=== PATIENT | female | born 1970 | race Hispanic/Latino ===

== ENCOUNTER 2017-02-24 12:43 | Emergency (ER) | payer BC ==
[2017-02-24 12:46] VITALS: BMI 25.4
[2017-02-24 12:57] VITALS: TEMP 98.4
[2017-02-24] MEDS ORDERED: TDAP Vaccine 0.5 mL Syr IM ONE (12:58)
--- NOTE | 2017-02-24 12:58 | ED PDOC ---
Arrival/HPI - General Historian: Patient - General Chief Complaint: Trauma Time Seen by Provider: 02/24/17 12:45 - History of Present Illness Narrative History of Present Illness (Text): 02/24/17 12:50 46 y/o female, pmh including multiple sclerosis, nkda, last tetanus doesn't remember, c/o lt. lower beaulieu injury with skin tear x 1 day. Pt. stated that she has chronically difficulty walking with the cane due to the multiple sclerosis, walking up the stair last night, lost her balance which she had these episodes chronically and following up with the neurologist Dr. Tucker, hit the lt. lateral beaulieu against the metal staple which sustained the skin tear , no numbness or tingling, no head or neck injury, no night sweat, no dizziness , no chest pain or shortness of breath, no other medical or psychological complaints. (Avel Lemus) Past Medical History - Provider Review Nursing Documentation Reviewed: Yes - Infectious Disease Hx of Infectious Diseases: None - Tetanus Immunization Tetanus Immunization: Unknown - Cardiac Hx Cardiac Disorders: No - Pulmonary Hx Respiratory Disorders: No - Neurological Hx Neurological Disorder: Yes Hx Multiple Sclerosis: Yes (ambulates w/cane) - HEENT Hx HEENT Disorder: No - Renal Hx Renal Disorder: No - Endocrine/Metabolic Hx Endocrine Disorders: No - Hematological/Oncological Hx Blood Disorders: No - Integumentary Hx Dermatological Disorder: No - Musculoskeletal/Rheumatological Hx Musculoskeletal Disorders: Yes Hx Unsteady Gait: Yes - Gastrointestinal Hx Gastrointestinal Disorders: No - Genitourinary/Gynecological Hx Genitourinary Disorders: No - Psychiatric Hx Psychophysiologic Disorder: No Hx Substance Use: No - Surgical History Hx Tonsillectomy: Yes Other/Comment: EAR TUBES - Anesthesia Hx Anesthesia: Yes Hx Anesthesia Reactions: No - Suicidal Assessment Feels Threatened In Home Enviroment: No Family/Social History - Physician Review Nursing Documentation Reviewed: Yes Family/Social History: Unknown Family HX Smoking Status: Never Smoked Hx Alcohol Use: No Hx Substance Use: No Hx Substance Use Treatment: No Allergies/Home Meds Allergies/Adverse Reactions: Allergies No Known Allergies Allergy (Verified 02/24/17 12:46) Home Medications: Home Meds Medication Instructions Recorded Confirmed Natalizumab [Tysabri] 1 mg IV Q30D 08/31/13 02/24/17 Dalfampridine [Ampyra] 10 mg PO Q12 08/01/15 02/24/17 Review of Systems - Review of Systems Constitutional: absent: Fatigue, Fevers Eyes: absent: Vision Changes ENT: absent: Hearing Changes Respiratory: absent: SOB, Cough Cardiovascular: absent: Chest Pain Gastrointestinal: absent: Abdominal Pain, Diarrhea, Nausea, Vomiting Musculoskeletal: absent: Arthralgias, Back Pain, Neck Pain, Joint Swelling, Myalgias Skin: Other (+abrasion). absent: Rash, Pruritis, Skin Lesions, Laceration, Abscess, Ulcer, Cellulitis Neurological: absent: Headache, Dizziness, Focal Weakness, Gait Changes Psychiatric: absent: Anxiety, Depression, Suicidal Ideation Physical Exam Temperature: Afebrile Blood Pressure: Normal Pulse: Regular Respiratory Rate: Normal Appearance: Positive for: Well-Appearing, Non-Toxic, Comfortable Pain Distress: None Mental Status: Positive for: Alert and Oriented X 3 - Systems Exam Head: Present: Atraumatic, Normocephalic Pupils: Present: PERRL Extroacular Muscles: Present: EOMI Conjunctiva: Present: Normal Mouth: Present: Moist Mucous Membranes Neck: Present: Normal Range of Motion Respiratory/Chest: Present: Clear to Auscultation, Good Air Exchange. No: Respiratory Distress, Accessory Muscle Use Cardiovascular: Present: Regular Rate and Rhythm, Normal S1, S2. No: Murmurs Abdomen: Present: Normal Bowel Sounds. No: Tenderness, Distention, Peritoneal Signs Back: Present: Normal Inspection Upper Extremity: Present: Normal Inspection. No: Cyanosis, Edema Lower Extremity: Present: Normal Inspection, Neurovascularly Intact, Capillary Refill < 2 s, Other (Lt. tibia/fibula: visible approx. 3cm superficial abrasion noted on the proximal 1/3 lateral tibial region with no laceration gap, FROM without limitation, sensation intact, motor 5/5, +DPPT pulses, capillary refill < 2 seconds, neurovascular intact. ). No: Edema Neurological: Present: GCS=15, Speech Normal, Motor Func Grossly Intact, Gait Normal, Memory Normal Skin: Present: Warm, Dry, Normal Color. No: Rashes Psychiatric: Present: Alert, Oriented x 3, Normal Insight, Normal Concentration Vital Signs Temp Pulse Resp BP Pulse Ox 02/24/17 12:49 98.4 F 79 19 112/76 98 Medical Decision Making - RAD Interpretation Pca: Radiologist ED Course and Treatment: 02/24/17 14:10 I was available for consultation during PA evaluation. The chart was reviewed by me, and I agree with disposition. The documented history was done by the physician industrial arts teacher. The documented physical exam was done by the physician industrial arts teacher. The documented procedures were done by the physician industrial arts teacher. (Osmani Alejandra) 02/24/17 13:04 -UA/Urine hcg -xray -tetanus/keflex -wound irrigate with normal saline, clean with betadine, bacitracin and gauze dressing, keflex. -Discharge home with keflex, bacitracin, tylenol, clean with soap and water twice daily, follow up with your own pmd and neurologist within 2 days, return to the ER for any new or worsening signs or symptoms. 02/24/17 13:49 -x-ray show no fracture or dislocation -UA show +UTI -Discharge home with keflex, bacitracin, tylenol, clean with soap and water twice daily, follow up with your own pmd and neurologist within 2 days, return to the ER for any new or worsening signs or symptoms (Avel Lemus) - Lab Interpretations Lab Results: Lab Results 02/24/17 13:52: Urine Color Yellow, Urine Appearance Clear, Urine pH 6.0, Ur Specific Cyrus 1.010, Urine Protein Negative, Urine Glucose (UA) Negative, Urine Ketones Negative, Urine Blood Small H, Urine Nitrate Negative, Urine Bilirubin Negative, Urine Urobilinogen 0.2, Ur Leukocyte Esterase Small H, Urine RBC Pending, Urine WBC Pending - RAD Interpretation Radiology Orders: 02/24/17 12:58 TIBIA FIBULA LEFT [RAD] Stat no fracture/dislocation/joint effusion (Avel Lemus) - Medication Orders Current Medication Orders: Discontinued Medications Cephalexin Monohydrate (Keflex) 500 mg PO STAT STA PRN Reason: Protocol Stop: 02/24/17 12:59 Tetanus/Reduced Diphtheria/Acell Pertussis (Boostrix Vaccine Inj) 0.5 ml IM .ONCE ONE Stop: 02/24/17 12:59 - PA / BLADDER CHANGER / Resident Statement / has reviewed & agrees with the documentation as recorded. Disposition/Present on Arrival - Present on Arrival Any Indicators Present on Arrival: No History of DVT/PE: No History of Uncontrolled Diabetes: No Urinary Catheter: No History of Decub. Ulcer: No History Surgical Site Infection Following: None - Disposition Have Diagnosis and Disposition been Completed?: Yes Disposition Time: 13:06 Patient Plan: Discharge - Disposition Diagnosis: Leg abrasion, Leg injury, UTI (urinary tract infection) Disposition: HOME/ ROUTINE Patient Problems: Current Active Problems Problem Status Onset Leg abrasion Acute Leg injury Acute Condition: GOOD Additional Instructions: Discharge home with keflex, bacitracin, tylenol, clean with soap and water twice daily, follow up with your own pmd and neurologist within 2 days, return to the ER for any new or worsening signs or symptoms Prescriptions: Acetaminophen [Tylenol 325mg tab] 2 tab PO QID PRN #30 tab PRN Reason: Other Bacitracin Ointment [Bacitracin] 1 appful TOP BID #15 g Cephalexin [cephalexin] 500 mg PO QID #28 cap Referrals: [facility] [place] [Outside] - Follow up with primary Forms: WORK NOTE
--- NOTE | 2017-02-24 13:51 | RAD ---
PROCEDURE: Radiographs of the left tibia and fibula. HISTORY: lt. tibia/fibula lateral proximal injury COMPARISON: None available. TECHNIQUE: Frontal and lateral views obtained. FINDINGS: BONES: No acute displaced fracture. JOINT SPACES: No dislocation. OTHER FINDINGS: Soft tissues appear unremarkable. No evidence of radiopaque foreign body. IMPRESSION: No acute displaced fracture, dislocation, or significant joint effusion identified. If symptoms persist, or if there is continued clinical concern, x-ray follow-up in 7-10 days should be considered.
[2017-02-24 14:09] LABS: URINE BILIRUBIN NEGATIVE (NEGATIVE); URINE BLOOD SMALL (NEGATIVE); URINE GLUCOSE (UA) NEGATIVE (NEGATIVE); URINE KETONE NEGATIVE (NEGATIVE); URINE LEUKOCYTE ESTERASE SMALL Leu/uL (NEGATIVE); URINE PROTEIN NEGATIVE mg/dL (<30 mg/dL); URINE UROBILINOGEN 0.2 E.U./dL (<1 E.U./dL)
[2017-02-24 14:12] LABS: URINE APPEARANCE CLEAR (CLEAR); URINE COLOR YELLOW (YELLOW)
[2017-02-24 14:24] LABS: URINE BACTERIA SMALL (NEG)
[2017-02-24 14:40] VITALS: BP 116/77; PULSE 62; RESP 17; O2SAT 100
== END 2017-02-24 14:41 | disposition home or self-care (01) ==
LOC: ED 12:43
DX: S80.812A Abrasion, left lower leg, initial encounter (principal); W22.8XXA Striking against or struck by other objects, initial encounter; Y93.89 Activity, other specified; Y92.89 Other specified places as the place of occurrence of the external cause; N39.0 Urinary tract infection, site not specified; G35 Multiple sclerosis; Z23 Encounter for immunization

== ENCOUNTER 2017-05-05 21:05 | Emergency (ER) | payer BC ==
[2017-05-05 21:06] VITALS: BMI 25.4
[2017-05-05 21:15] VITALS: TEMP 98.4
--- NOTE | 2017-05-05 21:21 | ED PDOC ---
Arrival/HPI <Kishan Juarez - Last Filed: 05/05/17 21:49> - General Historian: Patient <Avel Lemus - Last Filed: 05/09/17 11:44> <Levy Queen - Last Filed: 05/09/17 20:38> - General Chief Complaint: Female Genitourinary Time Seen by Provider: 05/05/17 21:09 - History of Present Illness Narrative History of Present Illness (Text): 05/05/17 21:21 47 y/o female, pmh including UTI, nkda, c/o burning urinary sensation x 3 days. Pt. has no fever or chills, no flank or pelvic pain, no rash, no night sweat, no dizziness, no change in vision, no pelvic pain, no rash, no other medical or psychological complaints. (Avel Lemus) Past Medical History - Provider Review Nursing Documentation Reviewed: Yes - Infectious Disease Hx of Infectious Diseases: None - Tetanus Immunization Tetanus Immunization: Unknown - Cardiac Hx Cardiac Disorders: No - Pulmonary Hx Respiratory Disorders: No - Neurological Hx Neurological Disorder: Yes Hx Multiple Sclerosis: Yes (ambulates w/cane) - HEENT Hx HEENT Disorder: No - Renal Hx Renal Disorder: No - Endocrine/Metabolic Hx Endocrine Disorders: No - Hematological/Oncological Hx Blood Disorders: No - Integumentary Hx Dermatological Disorder: No - Musculoskeletal/Rheumatological Hx Musculoskeletal Disorders: Yes Hx Unsteady Gait: Yes - Gastrointestinal Hx Gastrointestinal Disorders: No - Genitourinary/Gynecological Hx Genitourinary Disorders: No - Psychiatric Hx Psychophysiologic Disorder: No Hx Substance Use: No - Surgical History Hx Tonsillectomy: Yes Other/Comment: EAR TUBES - Anesthesia Hx Anesthesia: Yes Hx Anesthesia Reactions: No Hx Malignant Hyperthermia: No - Suicidal Assessment Feels Threatened In Home Enviroment: No <Avel Lemus - Last Filed: 05/09/17 11:44> Family/Social History - Physician Review Nursing Documentation Reviewed: Yes Family/Social History: Unknown Family HX Smoking Status: Never Smoked Hx Alcohol Use: No Hx Substance Use: No Hx Substance Use Treatment: No <Avel Lemus - Last Filed: 05/09/17 11:44> Allergies/Home Meds <Kishan Juarez - Last Filed: 05/05/17 21:49> <Avel Lemus - Last Filed: 05/09/17 11:44> <ShantalMicah rosaslaura Horta - Last Filed: 05/09/17 20:38> Allergies/Adverse Reactions: Allergies No Known Allergies Allergy (Verified 05/05/17 21:15) Home Medications: Home Meds Medication Instructions Recorded Confirmed Natalizumab [Tysabri] 1 mg IV Q30D 08/31/13 05/05/17 Dalfampridine [Ampyra] 10 mg PO Q12 08/01/15 05/05/17 Review of Systems - Review of Systems Constitutional: absent: Fatigue, Fevers Eyes: absent: Vision Changes ENT: absent: Hearing Changes Respiratory: absent: SOB, Cough Cardiovascular: absent: Chest Pain Gastrointestinal: absent: Abdominal Pain, Nausea, Vomiting Genitourinary Female: Dysuria. absent: Frequency, Hematuria, Urine Output Changes Skin: absent: Rash, Pruritis Neurological: absent: Headache, Dizziness, Focal Weakness <Avel Lemus - Last Filed: 05/09/17 11:44> Physical Exam Vital Signs Reviewed: Yes Temperature: Afebrile Blood Pressure: Normal Pulse: Regular Respiratory Rate: Normal Appearance: Positive for: Well-Appearing, Non-Toxic, Comfortable Pain Distress: None Mental Status: Positive for: Alert and Oriented X 3 - Systems Exam Head: Present: Atraumatic, Normocephalic Pupils: Present: PERRL Extroacular Muscles: Present: EOMI Conjunctiva: Present: Normal Mouth: Present: Moist Mucous Membranes Neck: Present: Normal Range of Motion Respiratory/Chest: Present: Clear to Auscultation, Good Air Exchange. No: Respiratory Distress, Accessory Muscle Use Cardiovascular: Present: Regular Rate and Rhythm, Normal S1, S2. No: Murmurs Abdomen: Present: Normal Bowel Sounds. No: Tenderness, Distention, Peritoneal Signs Back: Present: Normal Inspection. No: CVA Tenderness Upper Extremity: Present: Normal Inspection. No: Cyanosis, Edema Lower Extremity: Present: Normal Inspection. No: Edema Neurological: Present: GCS=15, Speech Normal, Motor Func Grossly Intact, Memory Normal Skin: Present: Warm, Dry, Normal Color. No: Rashes Psychiatric: Present: Alert, Oriented x 3, Normal Insight, Normal Concentration <Avel Lemus - Last Filed: 05/09/17 11:44> Medical Decision Making <Kishan Juarez - Last Filed: 05/05/17 21:49> - Lab Interpretations Interpretation: Abnormal lab values (+UTI) <Avel Lemus - Last Filed: 05/09/17 11:44> <Levy Queen - Last Filed: 05/09/17 20:38> ED Course and Treatment: 05/05/17 21:21 -ua 05/05/17 23:05 -Macrobid ordered as there is UTI -Discharge home with macrobid, pyridium, stay hydrated, bed rest, follow up with your own pmd within 2 days, return to the ER for any new or worsening signs or symptoms. (Avel Lemus) - Lab Interpretations Microbiology Results: Microbiology Results 05/05/17 23:30 Urine,Clean Catch Urine Culture - Final Escherichia Coli Enterococcus Faecalis Lab Results: Lab Results 05/05/17 22:25: Urine Color Yellow, Urine Appearance Cloudy, Urine pH 6.5, Ur Specific Carman 1.025, Urine Protein 100 H, Urine Glucose (UA) Negative, Urine Ketones Negative, Urine Blood Large H, Urine Nitrate Positive H, Urine Bilirubin Negative, Urine Urobilinogen 0.2, Ur Leukocyte Esterase Moderate H, Urine RBC Tntc, Urine WBC 25 - 30, Ur Epithelial Cells 3 - 4, Urine Bacteria Large - Medication Orders Current Medication Orders: Discontinued Medications Nitrofurantoin Macrocrystals (Macrobid) 100 mg PO STAT STA Stop: 05/05/17 23:06 Last Admin: 05/05/17 23:35 Dose: 100 mg Phenazopyridine HCl (Pyridium) 200 mg PO STAT STA Stop: 05/05/17 23:11 Last Admin: 05/05/17 23:35 Dose: 200 mg - PA / TIE MILL OPERATOR / Resident Statement JOE has reviewed & agrees with the documentation as recorded. JOE has examined the patient and agrees with the treatment plan. <Kishan Juarez - Last Filed: 05/05/17 21:49> - PA / TIE MILL OPERATOR / Resident Statement JOE has reviewed & agrees with the documentation as recorded. <Avel Lemus - Last Filed: 05/09/17 11:44> Disposition/Present on Arrival <Kishan Juarez - Last Filed: 05/05/17 21:49> - Present on Arrival Any Indicators Present on Arrival: No History of DVT/PE: No History of Uncontrolled Diabetes: No Urinary Catheter: No History of Decub. Ulcer: No History Surgical Site Infection Following: None - Disposition Have Diagnosis and Disposition been Completed?: Yes Disposition Time: 23:06 Patient Plan: Discharge <Avel Lemus - Last Filed: 05/09/17 11:44> <Levy Queen - Last Filed: 05/09/17 20:38> - Disposition Diagnosis: UTI (urinary tract infection) Disposition: HOME/ ROUTINE Condition: GOOD Additional Instructions: -Discharge home with macrobid, pyridium, stay hydrated, bed rest, follow up with your own pmd within 2 days, return to the ER for any new or worsening signs or symptoms. Prescriptions: Nitrofurantoin Macrocrystals [Macrobid] 100 mg PO BID #14 cap Phenazopyridine [Phenazopyridine HCl] 200 mg PO TID #6 tab Referrals: Jose Dominguez MD [Primary Care Provider] - Follow up with primary Forms: [employer] (Citizen [place]), WORK NOTE
[2017-05-05 22:54] LABS: PH,URINE 6.5 (4.7-8.0); URINE BILIRUBIN NEGATIVE (NEGATIVE); URINE BLOOD LARGE (NEGATIVE); URINE GLUCOSE (UA) NEGATIVE (NEGATIVE); URINE KETONE NEGATIVE (NEGATIVE); URINE LEUKOCYTE ESTERASE MODERATE Leu/uL (NEGATIVE); URINE PROTEIN 100 mg/dL (<30 mg/dL); URINE UROBILINOGEN 0.2 E.U./dL (<1 E.U./dL)
[2017-05-05 22:56] LABS: URINE APPEARANCE CLOUDY (CLEAR); URINE COLOR YELLOW (YELLOW)
[2017-05-05 23:09] LABS: URINE BACTERIA LARGE (NEG); URINE RBC TNTC /hpf (0-2); URINE WBC 25 - 30 /hpf (0-6)
[2017-05-05 23:47] VITALS: BP 120/87; PULSE 72; RESP 16; O2SAT 100
== END 2017-05-05 23:35 | disposition home or self-care (01) ==
LOC: ED 21:05
DX: N39.0 Urinary tract infection, site not specified (principal)

== ENCOUNTER 2017-12-28 13:11 | Emergency (ER) | payer BC ==
[2017-12-28 13:22] VITALS: BMI 25.7
[2017-12-28 13:26] VITALS: RESP 18
--- NOTE | 2017-12-28 13:37 | ED PDOC ---
Arrival/HPI - General Chief Complaint: Lower Extremity Problem/Injury Time Seen by Provider: 12/28/17 13:27 Historian: Patient - History of Present Illness Narrative History of Present Illness (Text): 12/28/17 13:30 47 y/o female, pmh including multiple sclerosis, nkda, c/o lt. hand thumb and rt. knee s/p accidental fall. Pt. stated that she has multiple sclerosis for over 10 years, always has mobility problem, falls frequently and managed by her own pcp Dr. Dominguez and Dr. Tucker (neurologist), accidentally fall on the lt. hand thumb and rt. anterior knee region last night while trying to get off from the bed with no head or neck injury. Pt. stated that it was an accidental fall, no chest pain or dizziness prior to the fall. Past Medical History - Provider Review Nursing Documentation Reviewed: Yes - Infectious Disease Hx of Infectious Diseases: None - Tetanus Immunization Tetanus Immunization: Unknown - Cardiac Hx Cardiac Disorders: No - Pulmonary Hx Respiratory Disorders: No - Neurological Hx Neurological Disorder: Yes Hx Multiple Sclerosis: Yes (ambulates w/cane) - HEENT Hx HEENT Disorder: No - Renal Hx Renal Disorder: No - Endocrine/Metabolic Hx Endocrine Disorders: No - Hematological/Oncological Hx Blood Disorders: No - Integumentary Hx Dermatological Disorder: No - Musculoskeletal/Rheumatological Hx Musculoskeletal Disorders: Yes Hx Unsteady Gait: Yes - Gastrointestinal Hx Gastrointestinal Disorders: No - Genitourinary/Gynecological Hx Genitourinary Disorders: No - Psychiatric Hx Psychophysiologic Disorder: No Hx Substance Use: No - Surgical History Hx Tonsillectomy: Yes Other/Comment: EAR TUBES - Anesthesia Hx Anesthesia: Yes Hx Anesthesia Reactions: No Hx Malignant Hyperthermia: No - Suicidal Assessment Feels Threatened In Home Enviroment: No Family/Social History - Physician Review Nursing Documentation Reviewed: Yes Family/Social History: Unknown Family HX Smoking Status: Never Smoked Hx Alcohol Use: No Hx Substance Use: No Hx Substance Use Treatment: No Allergies/Home Meds Allergies/Adverse Reactions: Allergies No Known Allergies Allergy (Verified 05/05/17 21:15) Home Medications: Home Meds Medication Instructions Recorded Confirmed Natalizumab [Tysabri] 1 mg IV Q30D 08/31/13 05/05/17 Dalfampridine [Ampyra] 10 mg PO Q12 08/01/15 05/05/17 Review of Systems - Review of Systems Constitutional: absent: Fatigue, Fevers Eyes: absent: Vision Changes ENT: absent: Hearing Changes Respiratory: absent: SOB, Cough Cardiovascular: absent: Chest Pain Gastrointestinal: absent: Abdominal Pain, Nausea, Vomiting Musculoskeletal: Arthralgias. absent: Back Pain, Neck Pain, Joint Swelling Skin: absent: Rash, Pruritis, Skin Lesions Neurological: absent: Headache, Dizziness Psychiatric: absent: Anxiety, Depression Physical Exam Vital Signs Reviewed: Yes Vital Signs Temp Pulse Resp BP Pulse Ox 12/28/17 16:08 98.4 F 70 18 122/70 99 12/28/17 13:12 98.5 F 74 18 111/73 100 Temperature: Afebrile Blood Pressure: Normal Pulse: Regular Respiratory Rate: Normal Appearance: Positive for: Well-Appearing, Non-Toxic, Comfortable Pain Distress: Mild Mental Status: Positive for: Alert and Oriented X 3 - Systems Exam Head: Present: Atraumatic, Normocephalic Pupils: Present: PERRL Extroacular Muscles: Present: EOMI Conjunctiva: Present: Normal Neck: Present: Normal Range of Motion Respiratory/Chest: Present: Clear to Auscultation, Good Air Exchange. No: Respiratory Distress, Accessory Muscle Use Cardiovascular: Present: Regular Rate and Rhythm, Normal S1, S2. No: Murmurs Abdomen: No: Tenderness, Distention, Peritoneal Signs Back: Present: Normal Inspection Upper Extremity: Present: Normal Inspection, Other (Lt. hand/wrist: +ttp on the lt. thenar region with no swelling, no scaphoid or wrist bone tenderness, FROM without limitation, sensation intact, motor 5/5, +radial pulse, capillary refill < 2 seconds, neurovascular intact. ). No: Cyanosis, Edema Lower Extremity: Present: Normal Inspection, Other (Rt. knee: mild +ttp on the anterior patellar region, no swelling, negative charles and oliveros signs, FROM without limitation, sensation intact, motor 5/5, +DPPT pulses, capillary refill < 2 seconds, neurovascular intact ). No: Edema Neurological: Present: GCS=15, Speech Normal, Motor Func Grossly Intact, Gait Normal, Memory Normal Skin: Present: Warm, Dry, Normal Color. No: Rashes Psychiatric: Present: Alert, Oriented x 3, Normal Insight, Normal Concentration Medical Decision Making ED Course and Treatment: 12/28/17 13:39 -Pt. refused pain meds -Xrays -Observe and reassess 12/28/17 15:57 -Urine hcg is negative -Rt. knee xray show no fracture or dislocation -Lt. hand xray show no fracture or dislocation -Oscar wrap applied with neurovascular intact. -Discharge home with naproxen, oscar wrap, ice compression, follow up with your own pmd and orthopedic within 2 days, return to the ER for any new or worsening signs or symptoms. - RAD Interpretation Radiology Orders: 12/28/17 13:37 HAND LEFT 3 VIEWS ROUTINE [RAD] Stat KNEE RIGHT 2 VIEWS (AP & LAT) [RAD] Stat Left hand: normal Rt. knee xray: no displaced fracture/dislocation Veteran Appeals Reviewer: Radiologist - PA / PULLMAN CLERK / Resident Statement / has reviewed & agrees with the documentation as recorded. Disposition/Present on Arrival - Present on Arrival Any Indicators Present on Arrival: No History of DVT/PE: No History of Uncontrolled Diabetes: No Urinary Catheter: No History of Decub. Ulcer: No History Surgical Site Infection Following: None - Disposition Have Diagnosis and Disposition been Completed?: Yes Diagnosis: Accidental fall, Arthralgia Disposition: HOME/ ROUTINE Disposition Time: 13:40 Patient Plan: Discharge Condition: GOOD Additional Instructions: -Discharge home with naproxen, oscar wrap, ice compression, follow up with your own pmd and orthopedic within 2 days, return to the ER for any new or worsening signs or symptoms. Prescriptions: Naproxen 500 mg PO BID PRN #20 tablet PRN Reason: Other Referrals: Jose Dominguez MD [Family Provider] - Follow up with primary Real Olmos III, MD [Medical Doctor] - Follow up with primary Chi Tucker MD [Staff Provider] - Follow up with primary Forms: WORK NOTE
[2017-12-28 16:09] VITALS: BP 122/70; PULSE 70; TEMP 98.4; O2SAT 99
--- NOTE | 2017-12-29 09:14 | RAD ---
PROCEDURE: Left hand dated 12/28/2017 HISTORY: Accidental fall COMPARISON: None. FINDINGS: BONES: Normal. No fracture. JOINTS: Normal. No osteoarthritic changes. SOFT TISSUES: No evidence of significant soft tissue swelling. No radiopaque foreign bodies are identified OTHER FINDINGS: None. IMPRESSION: Normal left hand radiographs.
--- NOTE | 2017-12-29 09:15 | RAD ---
PROCEDURE: Right knee dated 12/28/2017 HISTORY: Accidental fall COMPARISON: None. FINDINGS: BONES: No evidence of acute displaced fracture nor dislocation. The osseous structures appear intact. JOINTS: Felix see No significant osteoarthritis. JOINT EFFUSION: No significant joint effusion OTHER FINDINGS: None. IMPRESSION: No evidence of acute displaced fracture nor dislocation.
== END 2017-12-28 16:11 | disposition home or self-care (01) ==
LOC: ED 13:11
DX: M79.645 Pain in left finger(s) (principal); M25.561 Pain in right knee; W06.XXXA Fall from bed, initial encounter; Y92.003 Bedroom of unspecified non-institutional (private) residence as the place of occurrence of the external cause

== ENCOUNTER 2018-10-07 14:16 | Outpatient (CLI) | payer BC | END 2018-10-07 14:17 | disposition home or self-care (01) | LOC: RAD 14:16 | DX: G35 Multiple sclerosis (principal) ==

== ENCOUNTER 2018-12-13 10:26 | Emergency (ER) | payer BC ==
[2018-12-13 10:29] VITALS: BMI 25.7
[2018-12-13 10:47] VITALS: RESP 18; TEMP 97.4
[2018-12-13] MEDS ORDERED: Lidocaine 5% Patch TD STA (11:03)
--- NOTE | 2018-12-13 11:51 | ED PDOC ---
Arrival/HPI - General Chief Complaint: Back Pain Time Seen by Provider: 12/13/18 10:46 Historian: Patient - History of Present Illness Narrative History of Present Illness (Text): 12/13/18 11:48 A 48 year old female, whose past medical history includes MS and chronic weakness both legs with numbness (due to this, patient uses cane to walk), receives regular infusions every 4 weeks of T[address]ri by Dr[address] Jiang, lesions to brain and spine, presents to the emergency department complaining of episodes of back pain. Patient states today is worse after getting out of bed and trying to stand up. Patient reports she is currently going to physical therapy for her left knee for the past 3 weeks. Patient notes experiencing urinary incontinence due to MS (old symptom), however denies any fever, urinary symptoms, bowel incontinence, nausea, vomiitng, abdominal pain, or any other complaints at this time. PMD: Dr. Dominguez Past Medical History - Provider Review Nursing Documentation Reviewed: Yes - Infectious Disease Hx of Infectious Diseases: None - Tetanus Immunization Tetanus Immunization: Unknown - Reproductive Menopause: No - Cardiac Hx Cardiac Disorders: No - Pulmonary Hx Respiratory Disorders: No - Neurological Hx Neurological Disorder: Yes Hx Multiple Sclerosis: Yes (ambulates w/cane) - HEENT Hx HEENT Disorder: No - Renal Hx Renal Disorder: No - Endocrine/Metabolic Hx Endocrine Disorders: No - Hematological/Oncological Hx Blood Disorders: No - Integumentary Hx Dermatological Disorder: No - Musculoskeletal/Rheumatological Hx Musculoskeletal Disorders: Yes Hx Unsteady Gait: Yes Other/Comment: MS - Gastrointestinal Hx Gastrointestinal Disorders: No - Genitourinary/Gynecological Hx Genitourinary Disorders: No - Psychiatric Hx Psychophysiologic Disorder: No Hx Substance Use: No - Surgical History Hx Tonsillectomy: Yes Other/Comment: EAR TUBES - Anesthesia Hx Anesthesia: Yes Hx Anesthesia Reactions: No Hx Malignant Hyperthermia: No - Suicidal Assessment Feels Threatened In Home Enviroment: No Family/Social History - Physician Review Nursing Documentation Reviewed: Yes Family/Social History: No Known Family HX Smoking Status: Never Smoked Hx Alcohol Use: No Hx Substance Use: No Hx Substance Use Treatment: No Allergies/Home Meds Allergies/Adverse Reactions: Allergies seasonal Allergy (Uncoded 12/13/18 10:49) CONGESTION Home Medications: Home Meds Medication Instructions Recorded Confirmed Natalizumab [Tysabri] 1 mg IV 08/31/13 05/05/17 Dalfampridine [Ampyra] 10 mg PO Q12 08/01/15 12/13/18 Review of Systems - Physician Review All systems were reviewed & negative as marked: Yes - Review of Systems Constitutional: absent: Fevers Gastrointestinal: absent: Abdominal Pain, Nausea, Vomiting Genitourinary Female: absent: Dysuria, Frequency, Hematuria, Urine Output Changes Musculoskeletal: Back Pain Physical Exam Vital Signs Reviewed: Yes Vital Signs Temp Pulse Resp BP Pulse Ox 12/13/18 10:42 97.4 F L 73 18 108/70 98 Temperature: Afebrile Blood Pressure: Normal Pulse: Regular Respiratory Rate: Normal Appearance: Positive for: Well-Appearing, Non-Toxic, Comfortable Pain Distress: Mild Mental Status: Positive for: Alert and Oriented X 3 - Systems Exam Head: Present: Atraumatic, Normocephalic Pupils: Present: PERRL Extroacular Muscles: Present: EOMI Conjunctiva: Present: Normal Mouth: Present: Moist Mucous Membranes Neck: Present: Normal Range of Motion Respiratory/Chest: Present: Clear to Auscultation, Good Air Exchange. No: Respiratory Distress, Accessory Muscle Use Cardiovascular: Present: Regular Rate and Rhythm, Normal S1, S2. No: Murmurs Abdomen: No: Tenderness, Distention, Peritoneal Signs Back: Present: Other (tenderness to L4-L5) Upper Extremity: Present: Normal Inspection. No: Cyanosis, Edema Lower Extremity: Present: Normal Inspection. No: Edema Neurological: Present: GCS=15, CN II-XII Intact, Speech Normal, Other (weakness to both legs, with sensation intact, however decreased to left leg) Skin: Present: Warm, Dry, Normal Color. 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 The findings are unchanged. Patient had a MRI of her lumbar spine on February 07, 2013 and that showed T11-T12 central disc herniation with encroachment upon the ventral margin of the cord, otherwise from T12-L5 there is no disc herniation or bulge is present, at L5-S1 there is disc bulge with an anterior thecal sac indentation and bilateral inferior foraminal encroachment. Impression: 48 year old female with back pain, worse today after getting out of bed and trying to stand up. Physical exam shows patient is in mild painful distress; tenderness to back at L4-L5; weakness to both legs with sensation intact, however decreased to left leg. Plan: -- Spinal Lumbar MRI -- POC Urine Test -- Urine Culture -- Urinalysis -- Toradol -- Lidoderm -- Reassess and disposition Progress Notes: 12/13/18 12:45 UA (-) On re-evaluation, patient is observed ambulating with a steady gait in the ER with the use of her cane. 12/13/18 14:30 MRI L spine w/o contrast : HISTORY: pain, h/o MS, h/o disc herniation T11-T12 COMPARISON: Lumbar spine MRI 02/07/2013. TECHNIQUE: Multiecho multiplanar sequences were performed through the lumbar spine without the use of intravenous contrast. FINDINGS: Normal lumbar lordosis. Vertebral body heights are preserved. Disc height loss and prominent desiccation are reiterated at L5-S1 with disc height loss further increased currently. Marrow signal unremarkable. Conus medullaris terminates at the level of T12-L1 disc interspace. The conus is only partially captured in this exam but exhibits and inhomogeneous signal changes, somewhat similar to that seen in prior lumbar spine MRI 02/07/2013 likely reflecting demyelination in this patient with a history of multiple sclerosis. Paraspinal soft tissues are unremarkable. Incidental note is made of likely fibroid uterine disease identified in prior pelvic ultrasound 02/26/2018. Left renal cyst suggested at the upper pole. Follow-up renal ultrasound recommended. T12-L1: No disc herniation, spinal canal stenosis or neural foraminal narrowing. L1-2: No disc herniation, spinal canal stenosis or neural foraminal narrowing. L2-3: no disc herniation, spinal canal stenosis or neural foraminal narrowing. L3-4: No disc herniation, spinal canal stenosis or neural foraminal narrowing. L4-5: No disc herniation. No significant stenosis of the central canal or neural foramina although lateral recesses are somewhat stenosed by facet joint arthropathy and minimal posterior disc bulging. L5-S1: No disc herniation, spinal canal stenosis or neural foraminal narrowing. OTHER FINDINGS: None. IMPRESSION: No interval disc herniation, central canal or generalized central canal stenosis appreciated throughout the lumbar spine. Lateral recesses are stenosis at L4-5 due to facet joint degenerative arthropathy combining with limited posterior disc bulge. No disc herniation identified from the upper endplate of T12 through S1. Abnormal signal changes at the conus medullaris likely reflect patient's known history of multiple sclerosis. The conus is not fully captured in this examination. Uterine fibroid changes incidentally identified as previously shown in prior pelvic ultrasound 02/26/2018. On reevaluation, patient is sitting probably in no acute distress, she reports improvement of pain. MRI results d/w the patient in great detail. Advised to follow up with pmd regarding her symptoms and MRI results. Rs provided to the patient. Advised to return at any time for any new or worsening symptoms. - RAD Interpretation Radiology Orders: 12/13/18 11:07 SPINAL CANAL LUMBAR W/O CONT [MRI] Stat - Medication Orders Current Medication Orders: Discontinued Medications Ketorolac Tromethamine (Toradol) 60 mg IM STAT STA Stop: 12/13/18 11:04 Lidocaine (Lidoderm) 1 ea TD STAT STA Stop: 12/13/18 11:04 - PA / CHUTE OPERATOR / Resident Statement MD/DO has reviewed & agrees with the documentation as recorded. - Scribe Statement The provider has reviewed the documentation as recorded by the Demetrius Pierre Provider Scribe Attestation: All medical record entries made by the Scribe were at my direction and personally dictated by me. I have reviewed the chart and agree that the record accurately reflects my personal performance of the history, physical exam, medical decision making, and the department course for this patient. I have also personally directed, reviewed, and agree with the discharge instructions and disposition. Disposition/Present on Arrival - Present on Arrival Any Indicators Present on Arrival: No History of DVT/PE: No History of Uncontrolled Diabetes: No Urinary Catheter: No History of Decub. Ulcer: No History Surgical Site Infection Following: None - Disposition Have Diagnosis and Disposition been Completed?: Yes Diagnosis: Low back pain, H/O multiple sclerosis Disposition: HOME/ ROUTINE Disposition Time: 14:15 Patient Plan: Discharge Patient Problems: Current Active Problems Problem Status Onset Low back pain Acute H/O multiple sclerosis Acute Condition: STABLE Discharge Instructions (ExitCare): Low Back Pain in Adults Additional Instructions: Thank you for letting us take care of you today. You were treated for low back pain, history of MS. The emergency medical care you received today was directed at your acute symptoms. If you were prescribed any medication, please fill it and take as directed. It may take several days for your symptoms to resolve. Return to the Emergency Department if your symptoms worsen, do not improve, or if you have any other problems. Please contact your doctor in 2 days for re-evaluation and follow up. Bring any paperwork you were given at discharge with you along with any medications you are taking to your follow up visit. Our treatment cannot replace ongoing medical care by a primary care provider (PCP) outside of the emergency department. Thank you for allowing the [facility] team to be part of your care today. Prescriptions: Lidocaine 5% [Lidoderm] 1 ea TD Q12H PRN #20 patch PRN Reason: Pain, Moderate (4-7) Meloxicam [Mobic] 15 mg PO DAILY PRN #20 tab PRN Reason: Pain, Moderate (4-7) Forms: [employer] (Tunisian)
[2018-12-13 13:29] LABS: URINE BILIRUBIN NEGATIVE (NEGATIVE); URINE BLOOD NEGATIVE (NEGATIVE); URINE GLUCOSE (UA) NEGATIVE (NEGATIVE); URINE LEUKOCYTE ESTERASE NEGATIVE Leu/uL (NEGATIVE); URINE PROTEIN NEGATIVE mg/dL (<30 mg/dL); URINE UROBILINOGEN 0.2 E.U./dL (<1 E.U./dL)
[2018-12-13 13:30] LABS: URINE APPEARANCE CLEAR (CLEAR); URINE COLOR YELLOW (YELLOW)
--- NOTE | 2018-12-13 14:19 | MRI ---
Date of service: 12/13/2018 PROCEDURE: MR LUMBAR SPINE WITHOUT CONTRAST HISTORY: pain, h/o MS, h/o disc herniation T11-T12 COMPARISON: Lumbar spine MRI 02/07/2013. TECHNIQUE: Multiecho multiplanar sequences were performed through the lumbar spine without the use of intravenous contrast. FINDINGS: Normal lumbar lordosis. Vertebral body heights are preserved. Disc height loss and prominent desiccation are reiterated at L5-S1 with disc height loss further increased currently. Marrow signal unremarkable. Conus medullaris terminates at the level of T12-L1 disc interspace. The conus is only partially captured in this exam but exhibits and inhomogeneous signal changes, somewhat similar to that seen in prior lumbar spine MRI 02/07/2013 likely reflecting demyelination in this patient with a history of multiple sclerosis. Paraspinal soft tissues are unremarkable. Incidental note is made of likely fibroid uterine disease identified in prior pelvic ultrasound 02/26/2018. Left renal cyst suggested at the upper pole. Follow-up renal ultrasound recommended. T12-L1: No disc herniation, spinal canal stenosis or neural foraminal narrowing. L1-2: No disc herniation, spinal canal stenosis or neural foraminal narrowing. L2-3: no disc herniation, spinal canal stenosis or neural foraminal narrowing. L3-4: No disc herniation, spinal canal stenosis or neural foraminal narrowing. L4-5: No disc herniation. No significant stenosis of the central canal or neural foramina although lateral recesses are somewhat stenosed by facet joint arthropathy and minimal posterior disc bulging. L5-S1: No disc herniation, spinal canal stenosis or neural foraminal narrowing. OTHER FINDINGS: None. IMPRESSION: No interval disc herniation, central canal or generalized central canal stenosis appreciated throughout the lumbar spine. Lateral recesses are stenosis at L4-5 due to facet joint degenerative arthropathy combining with limited posterior disc bulge. No disc herniation identified from the upper endplate of T12 through S1. Abnormal signal changes at the conus medullaris likely reflect patient's known history of multiple sclerosis. The conus is not fully captured in this examination. Uterine fibroid changes incidentally identified as previously shown in prior pelvic ultrasound 02/26/2018.
[2018-12-13 14:53] VITALS: BP 107/62; PULSE 88; O2SAT 99
== END 2018-12-13 15:11 | disposition home or self-care (01) ==
LOC: ED 10:26
DX: M54.5 Low back pain (principal); G35 Multiple sclerosis
CPT/HCPCS: 72148; 81003; 87086; 96372; 99282; J1885